=== PATIENT | male | born 2005 | race Caucasian/White ===

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

== ENCOUNTER 2024-02-22 10:05 | Emergency (ER) | payer OTHER ==
[2024-02-22 10:38] VITALS: BP 130/70; PULSE 58; RESP 18; TEMP 98.2; BMI 25.0
[2024-02-22] MEDS ORDERED: IBUPROFEN 400 MG TABLET (FP) PO ONE (11:50)
[2024-02-22] MEDS: IBUPROFEN 400 MG TABLET (FP) PO ONE (11:51)
== END 2024-02-22 12:36 | disposition home or self-care (01) ==
LOC: JERFT 10:05
DX: J02.8 Acute pharyngitis due to other specified organisms (principal); Z20.822 Contact with and (suspected) exposure to COVID-19
CPT/HCPCS: 0241U-QW; 87651; 99283-25

== ENCOUNTER 2024-06-30 12:10 | Emergency (ER) | payer OTHER ==
[2024-06-30 12:16] VITALS: BP 123/72; PULSE 85; RESP 18; TEMP 98.4; BMI 27.3
[2024-06-30 14:12] LABS: THROAT:GRP A STREP NOT DETECTED (NOTDETECTED)
== END 2024-06-30 15:05 | disposition home or self-care (01) ==
LOC: JERFT 12:10
DX: R05.9 Cough, unspecified (principal); B34.9 Viral infection, unspecified; Z20.822 Contact with and (suspected) exposure to COVID-19
CPT/HCPCS: 0241U-QW; 87651; 99283-25